=== PATIENT | female | born 1965 | race Caucasian/White ===

== ENCOUNTER 2024-03-11 07:23 | Emergency (ER) | payer OTHER ==
[~2024-03-11] VITALS: Ht 154.9 cm; Wt 59.1 kg
[2024-03-11 07:29] VITALS: TEMP 97.7
[2024-03-11] MEDS ORDERED: METH2.5T47 PO (07:43)
[2024-03-11] MEDS ORDERED: BENA5TAB48 PO (07:43)
[2024-03-11] MEDS ORDERED: METF-1211 PO (07:43)
[2024-03-11] MEDS ORDERED: FOLI-130 PO (07:43)
[2024-03-11] MEDS ORDERED: GABA-1216 PO (07:43)
[2024-03-11] MEDS ORDERED: BENOZEPRIL PO (07:43)
[2024-03-11] MEDS ORDERED: TRULICITY SQ (07:43)
[2024-03-11] MEDS ORDERED: AMLO-257 PO (07:43)
[2024-03-11] MEDS ORDERED: ATOR40TA28 PO (07:43)
[2024-03-11] MEDS ORDERED: MELO-107 PO (07:43)
[2024-03-11 07:46] LABS: GLUCOMETER DEV NAME(LOC) ERT.5; GLUCOSE,POINT OF CARE 141 MG/DL (70-110)
[2024-03-11 07:54] LABS: BASOPHILS % (AUTO) 0.5 % (0.0-2.0); EOSINOPHILS % (AUTO) 2.3 % (1.0-6.0); HEMOGLOBIN 12.5 g/dL (12.0-16.0); LYMPHOCYTES % (AUTO) 30.2 % (22.0-44.0); MEAN CORPUSCULAR HEMOGLOBIN 30.3 pg (26.0-34.0); MEAN CORPUSCULAR HGB CONC 33.9 G/dL (31.0-37.0); MEAN CORPUSCULAR VOLUME 90 fL (80-100); MONOCYTES # (AUTO) 0.4 K/uL (0.1-1.0); MONOCYTES % (AUTO) 12.5 % (2.0-9.0); NEUTROPHILS # (AUTO) 1.9 K/uL (1.8-7.7); NEUTROPHILS % (AUTO) 54.5 % (40.0-70.0); PLATELET COUNT (AUTO) 226 K/uL (150-450); RED BLOOD CELL COUNT(AUTO) 4.13 MIL/uL (4.00-5.20); WHITE BLOOD COUNT (AUTO) 3.5 K/uL (4.5-11.0)
[2024-03-11 08:06] LABS: ANION GAP 8 mmol/L (8-16); CARBON DIOXIDE 26 mmol/L (22-29); CHLORIDE 108 mmol/L (98-107); CREATININE 0.58 mg/dL (0.60-1.30); GLOMERULAR FILTR. RATE CALC > 60 mL/min (>60); GLUCOSE,RANDOM 150 mg/dL (70-110); POTASSIUM 4.1 mmol/L (3.5-5.1); SODIUM SERUM 142 mmol/L (136-145); UREA NITROGEN, BLOOD 8 mg/dL (7-18)
[2024-03-11 08:09] LABS: LIPASE 29 U/L (16-77)
[2024-03-11 08:16] LABS: TROPONIN I-HIGH SENSITIVITY Less Than 4 ng/L (<51)
[2024-03-11 09:40] LABS: ALANINE AMINOTRANSFERASE 101 U/L (12-78); ALBUMIN 3.6 g/dL (3.4-5.0); ALKALINE PHOSPHATASE 90 U/L (46-116); ASPARTATE AMINOTRANSFERASE 41 U/L (15-37); BILIRUBIN,TOTAL 1.3 mg/dL (0.1-1.0); TOTAL PROTEIN, SERUM 6.9 g/dL (6.4-8.2)
[2024-03-11 10:47] LABS: APPEARANCE,URINE CLEAR (CLEAR); BILIRUBIN,URINE NEGATIVE (NEGATIVE); COLOR,URINE YELLOW (YELLOW); GLUCOSE, URINE (UA) NEGATIVE (NEGATIVE); KETONES,URINE NEGATIVE (NEGATIVE); LEUKOCYTE ESTERASE ,URINE NEGATIVE (NEGATIVE); NITRATE,URINE NEGATIVE (NEGATIVE); OCCULT BLOOD,URINE SMALL (NEGATIVE); PH,URINE 5.5 (5.0-8.0); PROTEIN,URINE TRACE mg/dL (NEGATIVE); SPECIFIC GRAVITIY, URINE 1.019 (1.003-1.030); UROBILINOGEN,URINE <=1.0 mg/dL (<=1.0)
[2024-03-11 11:29] LABS: BACTERIA,URINE None Seen /HPF (None Seen); WBC,URINE 0-2 /HPF (0-5)
[2024-03-11] MEDS ORDERED: DULA0.75 SQ (11:58)
[2024-03-11 12:00] VITALS: BP 144/70; PULSE 78; RESP 16
[2024-03-11] MEDS: FAMOTIDINE 20 MG TABLET PO ONE (12:04)
[2024-03-11] MEDS: MAG HYDROX/ALUMINUM HYD/SIMETH ES 30 ML SUSPENSION UDCUP PO ONE (12:04)
[2024-03-11] MEDS ORDERED: FAMO20 PO (13:26)
[2024-03-11] MEDS ORDERED: DIPHENOXYLATE/ATROP 2.5-0.025 MG TABLET ONE (13:53)
[2024-03-11] MEDS ORDERED: DIPHENOXYLATE/ATROP 2.5-0.025 MG/5 ML ORAL.SYG LIQUID PO ONE (14:00)
[2024-03-11] MEDS ORDERED: DIPHENOXYLATE/ATROP 2.5-0.025 MG TABLET PO ONE (14:00)
== END 2024-03-11 14:00 | disposition home or self-care (01) ==
LOC: EMS 07:34
DX: K27.9 Peptic ulcer, site unspecified, unspecified as acute or chronic, without hemorrhage or perforation (principal); J45.909 Unspecified asthma, uncomplicated; E11.9 Type 2 diabetes mellitus without complications; E78.00 Pure hypercholesterolemia, unspecified
CPT/HCPCS: 71045; 76700; 80048; 80076; 81001; 82962; 83690; 84484; 85025; 93005; 99285; 36415-L1; 36415-TC